=== PATIENT | male | born 1990 | race African-American/Black ===

== ENCOUNTER 2017-08-20 09:59 | Emergency (ER) | payer SELFPAY, OTHER ==
[2017-08-20] MEDS: HYDROcodone/APAP 5/325MG 1 TAB TABLET PO (10:46)
== END 2017-08-20 11:55 | disposition home or self-care (01) ==
LOC: ER 09:59
DX: S83.91XA Sprain of unspecified site of right knee, initial encounter (principal); S90.512A Abrasion, left ankle, initial encounter; V29.9XXA Motorcycle rider (driver) (passenger) injured in unspecified traffic accident, initial encounter; Y93.I9 Activity, other involving external motion; Y92.89 Other specified places as the place of occurrence of the external cause; Y99.8 Other external cause status
CPT/HCPCS: 73564; 73590; 99283; 99284